=== PATIENT | male | born 1980 | race Hispanic/Latino ===

== ENCOUNTER 2023-05-22 16:22 | Emergency (ER) | payer OTHER ==
[~2023-05-22] VITALS: Ht 182.9 cm; Wt 113.4 kg
[2023-05-22 16:52] VITALS: BP 149/102
[2023-05-22] MEDS ORDERED: D-ME118S47 PO (17:41)
[2023-05-22] MEDS ORDERED: PRED20TA3 PO (17:41)
[2023-05-22] MEDS ORDERED: PREDNISONE 20 MG TABLET ONE (17:51)
[2023-05-22] MEDS ORDERED: IBUPROFEN 400 MG TABLET ONE (17:52)
[2023-05-22] MEDS ORDERED: IBUPROFEN 800 MG TAB PO ONE (18:00)
[2023-05-22] MEDS ORDERED: PREDNISONE 20 MG TABLET PO ONE (18:00)
== END 2023-05-22 17:59 | disposition home or self-care (01) ==
LOC: EDH 16:22
DX: J06.9 Acute upper respiratory infection, unspecified (principal); H92.03 Otalgia, bilateral

== ENCOUNTER → 2024-09-10 | Outpatient (CLI) | payer OTHER ==
[~2024-09-10] MED LIST: BROM118S48 PO; PRED20TA3 PO
[2024-09-10 21:27] VITALS: PULSE 76; RESP 14
[2024-09-10 22:00] VITALS: PULSE 74; RESP 14
[2024-09-10 22:29] VITALS: PULSE 60; RESP 10
[2024-09-10 22:57] VITALS: PULSE 88; RESP 12
[2024-09-10 23:30] VITALS: PULSE 64; RESP 14
[2024-09-11] VITALS (20 sets, daily range): PULSE 54–89; RESP 7–19
== END | disposition home or self-care (01) ==
LOC: SLP 20:21
PROVIDERS: ATTEND Internal Medicine
DX: G47.33 Obstructive sleep apnea (adult) (pediatric) (principal); R40.0 Somnolence; R06.83 Snoring
CPT/HCPCS: 95811

== ENCOUNTER → 2025-10-13 | Outpatient (CLI) | payer OTHER ==
--- NOTE | 2025-10-14 03:05 | HMCIMG ---
STUDY: X-RAY OF THE LUMBAR SPINE, 3 VIEWS HISTORY: Midline back pain. TECHNIQUE: AP, lateral, and oblique views of the lumbar spine are submitted for interpretation. COMPARISON: None provided. FINDINGS: Bones and joints: Lumbar vertebral body heights are preserved without evidence of acute fracture. Multilevel endplate osteophytic spurring is noted, compatible with degenerative spondylosis. There is reduction of the L5???S1 intervertebral disc height with associated vacuum phenomenon. Remaining disc spaces are relatively preserved. No definite spondylolisthesis or destructive osseous lesion is identified. Soft tissues: Paraspinal soft tissues appear unremarkable. No abnormal soft tissue calcification or mass is seen. IMPRESSION: * Degenerative changes of the lumbar spine with multilevel endplate osteophytic spurring and disc space narrowing at L5???S1 with vacuum phenomenon, compatible with degenerative disc disease. * No radiographic evidence of acute fracture or malalignment. * MRI of the lumbar spine is suggested for further evaluation of disc pathology and neural element compromise if clinically indicated. /[place]
== END | disposition home or self-care (01) ==
LOC: RAH 14:57
PROVIDERS: ATTEND Internal Medicine
DX: M47.816 Spondylosis without myelopathy or radiculopathy, lumbar region (principal); M48.07 Spinal stenosis, lumbosacral region; M54.89 Other dorsalgia; M25.78 Osteophyte, vertebrae; M51.370 Other intervertebral disc degeneration, lumbosacral region with discogenic back pain only
CPT/HCPCS: 72100